=== PATIENT | male | born 1985 | race Caucasian/White ===

== ENCOUNTER 2016-09-16 12:01 | Emergency (ER) | payer OTHER ==
[~2016-09-16] VITALS: Ht 182.9 cm; Wt 90.8 kg
[2016-09-16] MEDS ORDERED: TYLENOL ARTHRI650 MG PO (13:05)
[2016-09-16 16:10] VITALS: BP 126/84
== END 2016-09-16 16:12 ==
LOC: EME 12:01
PROC: 0RSKXZZ Reposition Left Shoulder Joint, External Approach (ICD-10-PCS; principal; 2016-09-16)
DX: M24.412 Recurrent dislocation, left shoulder (principal)
CPT/HCPCS: 73030; 99281; 99285; J2270

== ENCOUNTER 2016-09-24 13:04 | Emergency (ER) | payer OTHER ==
[~2016-09-24] VITALS: Ht 180.3 cm; Wt 93.9 kg
[~2016-09-24 13:04] MED LIST: TYLENOL ARTHRI650 MG PO
[2016-09-24 14:27] VITALS: BP 157/103
== END 2016-09-24 14:38 ==
LOC: EME 13:04
PROC: 0RSKXZZ Reposition Left Shoulder Joint, External Approach (ICD-10-PCS; principal; 2016-09-24)
DX: M24.412 Recurrent dislocation, left shoulder (principal)
CPT/HCPCS: 73030; 99281; 99284; J3010

== ENCOUNTER 2016-10-12 22:53 | Emergency (ER) | payer OTHER ==
[~2016-10-12] VITALS: Ht 180.3 cm; Wt 92.2 kg
[2016-10-13] MEDS ORDERED: PERCOCET 5/31 TABLET PO (03:06)
[2016-10-13 03:50] VITALS: BP 146/82
== END 2016-10-13 03:56 ==
LOC: EME 22:53
PROC: 0RSKXZZ Reposition Left Shoulder Joint, External Approach (ICD-10-PCS; principal; 2016-10-12)
DX: M24.412 Recurrent dislocation, left shoulder (principal); Z87.891 Personal history of nicotine dependence
CPT/HCPCS: 73030; 73200; 99281; 99285; J2270; J2310; J2405; J3010; J3360

== ENCOUNTER 2017-10-04 01:11 | Emergency (ER) | payer OTHER ==
[~2017-10-04] VITALS: Ht 180.3 cm; Wt 84.8 kg
[~2017-10-04 01:11] MED LIST changes: +PERCOCET 5/31 TABLET PO
[2017-10-04 04:26] VITALS: BP 122/74
== END 2017-10-04 04:26 | disposition short-term general hospital (02) ==
LOC: EME 01:11
PROC: 0RSKXZZ Reposition Left Shoulder Joint, External Approach (ICD-10-PCS; principal; 2017-10-04)
DX: M24.412 Recurrent dislocation, left shoulder (principal); X58.XXXA Exposure to other specified factors, initial encounter; Y92.143 Cell of prison as the place of occurrence of the external cause
CPT/HCPCS: 73030; 99281; 99285; J3010

== ENCOUNTER 2018-02-15 04:08 | Emergency (ER) | payer OTHER ==
[~2018-02-15] VITALS: Ht 180.3 cm; Wt 89.1 kg
[2018-02-15 07:13] VITALS: BP 122/89
== END 2018-02-15 07:14 ==
LOC: EME → EDBD 04:08 → EME 04:08
PROC: 0RSKXZZ Reposition Left Shoulder Joint, External Approach (ICD-10-PCS; principal; 2018-02-15)
DX: M24.412 Recurrent dislocation, left shoulder (principal)
CPT/HCPCS: 73030; 99281; 99284; J2270; J7030